=== PATIENT | male | born 1945 | race Caucasian/White ===

== ENCOUNTER → 2020-12-14 | Outpatient (CLI) | payer MEDICARE ==
[2020-12-14 11:13] LABS: Albumin 4.6 g/dL (3.80-4.90); Anion Gap 8.4 mmol/L (4.00-12.00); BUN/Creat Ratio 24.62 Ratio (12.00-20.00); Carbon Dioxide 24.6 mmol/L (21.6-31.8); Globulin 2.3 g/dL (1.6-3.3); Non-African American GFR(CKD) 52.6 (60.0-200.0); Potassium 4.8 mmol/L (3.5-5.5); Total Bilirubin 0.5 mg/dL (0.2-1.2); Total Protein 6.9 g/dL (6.2-8.2)
== END | disposition home or self-care (01) ==
LOC: LABWHC1 07:02
PROVIDERS: ATTEND Thoracic Surgery (Cardiothoracic Vascular Surgery)
DX: I35.1 Nonrheumatic aortic (valve) insufficiency (principal)
CPT/HCPCS: 36415; 80053

== ENCOUNTER → 2021-01-14 | Outpatient (CLI) | payer MEDICARE ==
--- NOTE | 2021-01-14 13:38 | CT ---
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 CONTRAST: CT scan of the chest, abdomen and pelvis is performed with IV Contrast, patient injected with 125 mL of Isovue 370. COMPARISON: None TECHNIQUE: Helical imaging obtained through the chest, abdomen and pelvis during arterial phase denise mabel administration of radiographic contrast intravenously. 3-D reconstructions generated on a [employer] workstation. FINDINGS: See report from [facility] regarding preprocedural planning CHEST: Lower Neck and Thyroid: No significant findings. Aorta: Mild aneurysm ascending aorta 4.1 cm. Mild scattered atherosclerotic calcifications with conve ntional arch vessel branching anatomy. Lungs: Mild biapical pleural-parenchymal scarring. Strandy bibasilar areas of atelectasis and mild de pendent atelectasis. No consolidation or pleural effusion. Central Airway: No significant findings Pleura: No significant findings Pulmonary Arteries: No significant findings Heart and Pericardium: Prominent LAD coronary artery calcifications. Lesser degree of RCA and circumf reno coronary artery calcifications. Lymph Nodes: No significant findings Mediastinum & Esophagus: No significant findings ABDOMEN/PELVIS: Please note arterial phase of the imaging limits detailed evaluation of the solid abdominal organs. Liver: No significant findings Spleen: No significant findings Kidneys: Tiny 5 mm cortical cyst lateral right kidney. Extra renal pelvis on both sides. Adrenal Glands: No significant findings Pancreas: No significant findings Gallbladder: No significant findings Bowel and Mesentery: Some generalized fold thickening of the gastric fundus and body. Correlate for p ossible underlying chronic gastritis. No dilated small bowel, free fluid, free air. Left sided coloni c diverticulosis, greatest in the sigmoid colon. No pericolonic inflammatory change. Mild scattered s tool. Aorta: Endovascular stent graft repair of abdominal aortic aneurysm. The stent proximal landing zone a at or just above the level of the renal arteries. [place] sac measures 4.8 cm. There may be a moder ate focal stenosis at the left common iliac artery bifurcation, axial image 91. The right common julisa c artery landing zone is mildly ectatic at 1.8 cm. There is prominent vessel tortuosity at the level of both common iliac artery bifurcations and proximal external iliac arteries. Lymph Nodes: No significant findings Urinary Bladder: No significant findings Pelvic Organs: Prostatomegaly of 5.4 cm wide. Multiple pelvic phlebolith. Small left inguinal hernia. Small bilateral hydroceles. Other: No significant findings Other Lines/Tubes/Devices/Hardware: None IMPRESSION: 1. Abdominal aortic endovascular stent graft repair. The havas[place]ai sac measures 4.8 cm. Correlate with a ny outside priors to determine stability. 2. Prominent vessel tortuosity at the bilateral common iliac artery bifurcations and proximal externa l iliac arteries. 3. Possible moderate focal stenosis at the left common iliac artery bifurcation. 4. Mildly ectatic right common iliac artery stent landing zone at 1.8 cm. 5. Left-sided colonic diverticulosis without acute diverticulitis. 6. Focal thickening within the gastric fundus and body, possible chronic gastritis. Clinically correl ate.
== END | disposition home or self-care (01) ==
LOC: RADCTMAIN 09:22
PROVIDERS: ATTEND Internal Medicine Interventional Cardiology
DX: I35.0 Nonrheumatic aortic (valve) stenosis (principal); K57.30 Diverticulosis of large intestine without perforation or abscess without bleeding
CPT/HCPCS: 82565; 84520; 71275; 36415; 74174; Q9967

== ENCOUNTER 2021-06-01 10:19 | Emergency (ER) | payer MEDICARE ==
[2021-06-01 10:54] VITALS: BP 96/56; PULSE 95; RESP 18; TEMP 98.4
[2021-06-01] MEDS ORDERED: OXYMETAZOLINE 0.05% NASL SPRAY 1 SPRAY BOTTLE NASAL STA (11:29)
--- NOTE | 2021-06-01 13:31 | ED ---
ENT HPI - General Chief complaint: ENT Stated complaint: epistaxis Time Seen by Provider: 06/01/21 11:25 Source: patient, RN notes reviewed Mode of arrival: ambulatory Limitations: no limitations - History of Present Illness Initial comments: Patient is a 75-year-old male that presents emergency department with a right- sided nosebleed. Patient notes that this happened around 2:00 in the morning after he got the shower. He notes that for the past several days she's been having a dry nose asthma and ALLERGIES. He notes his been blowing his nose rep eatedly throughout the day. He notes he does not have a humidifier at home or using nasal spray to keep his nasal mucosa moist. Patient notes a little takes a baby aspirin. Patient denied any rashes complaint. He was otherwise well- appearing.he denied any chest pain shortness of breath headache nausea vomiting diarrhea constipation fever fatigue chills. - Related Data Previous Rx's Medication Instructions Recorded Fluticasone Nasal [place] [Flonase 2 spr EA NOSTRIL DAILY #16 gm 06/01/21 Nasal [place]] Allergies Allergy/AdvReac Type Severity Reaction Status Date / Time No Known Allergies Allergy Verified 06/01/21 13:27 Review of Systems ROS Statement: Those systems with pertinent positive or pertinent negative responses have been documented in the HPI. ROS Other: All systems not noted in ROS Statement are negative. Past Medical History History of Any Multi-Drug Resistant Organisms: None Reported Past Psychological History: No Psychological Hx Reported Smoking Status: Never smoker Past Alcohol Use History: None Reported Past Drug Use History: None Reported General Exam Limitations: no limitations General appearance: alert, in no apparent distress Head exam: Present: atraumatic, normocephalic, normal inspection Eye exam: Present: normal appearance, PERRL, EOMI. Absent: scleral icterus, conjunctival injection, periorbital swelling ENT exam: Present: normal exam, mucous membranes moist Neck exam: Present: normal inspection Respiratory exam: Present: normal lung sounds bilaterally. Absent: respiratory distress, wheezes, rales, rhonchi, stridor Cardiovascular Exam: Present: regular rate, normal rhythm, normal heart sounds. Absent: systolic murmur, diastolic murmur, rubs, gallop, clicks GI/Abdominal exam: Present: soft, normal bowel sounds. Absent: distended, tenderness, guarding, rebound, rigid Extremities exam: Present: normal inspection, full ROM, normal capillary refill. Absent: tenderness, pedal edema, joint swelling, calf tenderness Neurological exam: Present: alert, oriented X3 Psychiatric exam: Present: normal affect, normal mood Skin exam: Present: warm, dry, intact, normal color. Absent: rash Course Vital Signs 06/01/21 10:46 Temperature 98.4 F Pulse Rate 95 Respiratory 18 Rate Blood Pressure 96/56 O2 Sat by Pulse 100 Oximetry Medical Decision Making - Medical Decision Making 75-year-old male with nosebleed. Right-sided nosebleed clotted well prior to arrival. Patient pulled out packing clock and with a. Oxymetazoline one spray each nostril was done was clamp Was placed. Upon evaluation nose bleeding. 1 more spray of oxymetazoline was administered. Case discussed with Dr. Cloud, patient discharge home. Disposition Clinical Impression: Epistaxis Disposition: HOME SELF-CARE Condition: Stable Instructions (If sedation given, give patient instructions): Nosebleed (ED) Additional Instructions: Please return to the Emergency Department if symptoms worsen or any other concerns. Follow-up primary care 1-2 days. Absolutely do not blow your24 hours. Use Flonase as prescribed. Is patient prescribed a controlled substance at d/c from ED?: No Referrals: Jose Guadalupe Cruz MD [Primary Care Provider] - 1-2 days Time of Disposition: 13:30
== END 2021-06-01 14:08 | disposition home or self-care (01) ==
LOC: EC 10:19
DX: R04.0 Epistaxis (principal)
CPT/HCPCS: 30901; 99283

== ENCOUNTER 2021-06-14 09:50 | Emergency (ER) | payer MEDICARE ==
[2021-06-14 12:11] VITALS: TEMP 97.6
--- NOTE | 2021-06-14 12:38 | ED ---
General Adult HPI - General Chief complaint: ENT Stated complaint: epistaxis Time Seen by Provider: 06/14/21 12:18 Source: patient Mode of arrival: ambulatory Limitations: no limitations - History of Present Illness Initial comments: Dictation was produced using [employer] dictation software. please excuse any grammatical, word or spelling errors. Chief Complaint: 75-year-old male presents with epistaxis, request for coronavirus test and blood work History of Present Illness: 75-year-old male presents to the emergency department for nosebleed. He was seen here a week ago for epistaxis. He was sent home with Afrin spray. Patient states he's had on-and-off bleeding since then. He followed up with his primary care doctor in was redirected to the emergency room to get nasal packing. Patient also requests covered test and blood work. Patient states he is having bleeding from the right naris. The ROS documented in this emergency department record has been reviewed and confirmed by me. Those systems with pertinent positive or negative responses have been documented in the HPI. All other systems are other negative and/or noncontributory. PHYSICAL EXAM: General Impression: Alert and oriented x3, not in acute distress HEENT: Normocephalic atraumatic, extra-ocular movements intact, pupils equal and reactive to light bilaterally, mucous membranes moist. Naris: There is blood clots and losing, from the right naris. There is some residual blood in the posterior oropharynx Cardiovascular: Heart regular rate and rhythm Chest: Able to complete full sentences, no retractions, no tachypnea Motor: no focal deficits noted Neurological: CN II-XII grossly intact, no focal motor or sensory deficits noted Skin: Intact with no visualized rashes Psych: Normal affect and mood ED course: 75-year-old male presents with epistaxis, request for covered test. Arrival are within acceptable limits. Rhino was placed in the right naris. Anterior and posterior balloon were inflated. Laboratory evaluation obtained. He will 9.3. Old hemoglobins for comparison. Coag panel is negative. Metabolic panel is within acceptable limits. Rotavirus negative. Case discussed with Dr. Diego who is willing to see patient in the office for outpatient management and epistaxis. Patient given antibiotics to be taken while packing is in place. - Related Data Home Medications Medication Instructions Recorded Confirmed Albuterol Sulfate [Proair Hfa] 1 - 2 puff INHALATION RT-Q6H PRN 06/01/21 06/14/21 Ascorbic Acid [Vitamin C] 1,000 mg PO DAILY 06/01/21 06/14/21 Aspirin EC [Ecotrin Low Dose] 81 mg PO DAILY 06/01/21 06/14/21 Cetirizine HCl [Zyrtec] 10 mg PO DAILY 06/01/21 06/14/21 Ezetimibe [Zetia] 10 mg PO DAILY@1600 06/01/21 06/14/21 Fenofibrate 160 mg PO DAILY 06/01/21 06/14/21 Isosorbide Mononitrate ER [Imdur] 30 mg PO DAILY@0100 06/01/21 06/14/21 Lansoprazole [Prevacid] 30 mg PO DAILY@0200 06/01/21 06/14/21 Metoprolol Succinate [Toprol XL] 100 mg PO DAILY@0500 06/01/21 06/14/21 Montelukast [Singulair] 10 mg PO DAILY@0700 06/01/21 06/14/21 Multivitamins, Thera [Multivitamin 1 tab PO DAILY 06/01/21 06/14/21 (formulary)] Rosuvastatin Calcium [Crestor] 40 mg PO HS@199906/01/21 06/14/21 lisinopriL [Zestril] 20 mg PO DAILY@0600 06/01/21 06/14/21 Previous Rx's Medication Instructions Recorded Fluticasone Nasal [place] [Flonase 2 spr EA NOSTRIL DAILY #16 gm 06/01/21 Nasal [place]] Amoxic-Pot Clav 875-125Mg 1 tab PO BID 10 Days #20 tab 06/14/21 [Augmentin 875-125] Allergies Allergy/AdvReac Type Severity Reaction Status Date / Time No Known Allergies Allergy Verified 06/14/21 13:17 Review of Systems ROS Statement: Those systems with pertinent positive or pertinent negative responses have been documented in the HPI. ROS Other: All systems not noted in ROS Statement are negative. Past Medical History Past Medical History: Myocardial Infarction ([place]) History of Any Multi-Drug Resistant Organisms: None Reported Additional Past Surgical History / Comment(s): angioplasty, aortic stent Past Psychological History: No Psychological Hx Reported Smoking Status: Never smoker Past Alcohol Use History: None Reported Past Drug Use History: None Reported General Exam Limitations: no limitations Course Vital Signs 06/14/21 12:04 Temperature 97.6 F Pulse Rate 92 Respiratory 18 Rate Blood Pressure 104/60 O2 Sat by Pulse 100 Oximetry Medical Decision Making - Lab Data Result diagrams: 06/14/21 12:49 06/14/21 12:49 Lab Results 06/14/21 06/14/21 06/14/21 Range/Units 12:44 12:49 12:49 WBC 13.7 H (3.8-10.6) k/uL RBC 3.13 L (4.30-5.90) m/uL Hgb 9.3 L (13.0-17.5) gm/dL Hct 29.3 L (39.0-53.0) % MCV 93.6 (80.0-100.0) fL MCH 29.8 (25.0-35.0) pg MCHC 31.9 (31.0-37.0) g/dL RDW 13.0 (11.5-15.5) % Plt Count 397 (150-450) k/uL MPV 7.6 Neutrophils % 88 % Lymphocytes % 6 % Monocytes % 4 % Eosinophils % 0 % Basophils % 0 % Neutrophils # 12.0 H (1.3-7.7) k/uL Lymphocytes # 0.9 L (1.0-4.8) k/uL Monocytes # 0.5 (0-1.0) k/uL Eosinophils # 0.0 (0-0.7) k/uL Basophils # 0.0 (0-0.2) k/uL PT 14.2 H (9.0-12.0) sec INR 1.4 H (<1.2) APTT 24.4 (22.0-30.0) sec Sodium (137-145) mmol/L Potassium (3.5-5.1) mmol/L Chloride (98-107) mmol/L Carbon Dioxide (22-30) mmol/L Anion Gap mmol/L BUN (9-20) mg/dL Creatinine (0.66-1.25) mg/dL Est GFR (CKD-EPI)AfAm (>60 ml/min/1.73 sqM) Est GFR (CKD-EPI)NonAf (>60 ml/min/1.73 sqM) Glucose (74-99) mg/dL Calcium (8.4-10.2) mg/dL Coronavirus (PCR) Not Detected (Not Detectd) 06/14/21 Range/Units 12:49 WBC (3.8-10.6) k/uL RBC (4.30-5.90) m/uL Hgb (13.0-17.5) gm/dL Hct (39.0-53.0) % MCV (80.0-100.0) fL MCH (25.0-35.0) pg MCHC (31.0-37.0) g/dL RDW (11.5-15.5) % Plt Count (150-450) k/uL MPV Neutrophils % % Lymphocytes % % Monocytes % % Eosinophils % % Basophils % % Neutrophils # (1.3-7.7) k/uL Lymphocytes # (1.0-4.8) k/uL Monocytes # (0-1.0) k/uL Eosinophils # (0-0.7) k/uL Basophils # (0-0.2) k/uL PT (9.0-12.0) sec INR (<1.2) APTT (22.0-30.0) sec Sodium 133 L (137-145) mmol/L Potassium 5.4 H (3.5-5.1) mmol/L Chloride 102 (98-107) mmol/L Carbon Dioxide 18 L (22-30) mmol/L Anion Gap 13 mmol/L BUN 64 H (9-20) mg/dL Creatinine 1.37 H (0.66-1.25) mg/dL Est GFR (CKD-EPI)AfAm 57 (>60 ml/min/1.73 sqM) Est GFR (CKD-EPI)NonAf 49 (>60 ml/min/1.73 sqM) Glucose 121 H (74-99) mg/dL Calcium 10.2 (8.4-10.2) mg/dL Coronavirus (PCR) (Not Detectd) Disposition Clinical Impression: Epistaxis Disposition: HOME SELF-CARE Condition: Fair Instructions (If sedation given, give patient instructions): Nosebleed (ED) Prescriptions: Amoxic-Pot Clav 875-125Mg [Augmentin 875-125] 1 tab PO BID 10 Days #20 tab Is patient prescribed a controlled substance at d/c from ED?: No Referrals: Bo Diego MD [STAFF PHYSICIAN] - 1-2 days
[2021-06-14 12:59] LABS: Basophils % (A) 0 %; Eosinophils % (A) 0 %; HCT 29.3 % (39.0-53.0); HGB 9.3 gm/dL (13.0-17.5); Lymphocytes # (A) 0.9 k/uL (1.0-4.8); Lymphocytes % (A) 6 %; MCH 29.8 pg (25.0-35.0); MCHC 31.9 g/dL (31.0-37.0); MCV 93.6 fL (80.0-100.0); Mean Platelet Volume 7.6; Monocytes # (A) 0.5 k/uL (0-1.0); Monocytes % (A) 4 %; Neutrophils % (A) 88 %; Platelet Count 397 k/uL (150-450); RBC 3.13 m/uL (4.30-5.90); WBC 13.7 k/uL (3.8-10.6)
[2021-06-14 13:08] LABS: Calcium 10.2 mg/dL (8.4-10.2); Potassium 5.4 mmol/L (3.5-5.1)
[2021-06-14 13:09] LABS: INR 1.4 (<1.2); Partial Thromboplastin Time 24.4 sec (22.0-30.0); Prothrombin Time 14.2 sec (9.0-12.0)
[2021-06-14 13:34] VITALS: BP 122/74; PULSE 77; RESP 16
== END 2021-06-14 13:34 | disposition home or self-care (01) ==
LOC: EC 09:50
DX: R04.0 Epistaxis (principal); I25.2 Old myocardial infarction; Z79.82 Long term (current) use of aspirin; Z20.822 Contact with and (suspected) exposure to COVID-19
CPT/HCPCS: 36415; 80048; 85025; 85610; 85730; 86850; 86900; 86901; 87635; 99283

== ENCOUNTER → 2021-08-04 | Outpatient (CLI) | payer MEDICARE ==
--- NOTE | 2021-08-04 08:03 | US ---
EXAMINATION TYPE: US kidneys/renal and bladder DATE OF EXAM: 08/04/2021 COMPARISON: CT 5 days ago. CLINICAL HISTORY: M54.50 Back Pain N18.31 Kidney Disease. CKD, Left renal stones seen on prior CT EXAM MEASUREMENTS: Right Kidney: 11.0 x 6.3 x 5.3 cm Left Kidney: 10.2 x 5.5 x 5.4 cm Right Kidney: No hydronephrosis or masses seen Left Kidney: No hydronephrosis, stones not seen at this time due to small in size Bladder: Not fully distended Bilateral Jets seen: Yes There is no evidence for hydronephrosis at this point in time. Some increased cortical echogenicity b ilaterally isodense to adjacent liver and spleen is noted. The 2-3 punctate nonobstructing left mayda l calculi measuring under 3 mm in size on recent CT are not clearly seen on today's ultrasound. No m asses are identified on images saved. The urinary bladder is poorly distended and is thus suboptimal ly evaluated. Bilateral ureteral jets are however seen. IMPRESSION: No hydronephrosis noted bilaterally.
== END | disposition home or self-care (01) ==
LOC: RADUSWWP 07:11
PROVIDERS: ATTEND Family Medicine
DX: M54.50 Low back pain, unspecified (principal); N20.0 Calculus of kidney; N18.31 Chronic kidney disease, stage 3a
CPT/HCPCS: 76770

== ENCOUNTER → 2021-09-02 | Outpatient (CLI) | payer MEDICARE ==
[2021-09-02 15:06] LABS: HCT 32.1 % (39.6-50.0); HGB 9.6 g/dL (13.0-17.0); MCH 29.9 pg (27.0-32.0); MCHC 29.9 g/dL (32.0-37.0); Mean Platelet Volume 11.5 fL (9.5-12.2); NRBC Per 100 WBC 0 /100 WBCS (0.0-0.0); Platelet Count 214 X 10*3/uL (140-440); RBC 3.21 X 10*6/uL (4.40-5.60); RDW 15.2 % (11.5-14.5); WBC 9.22 X 10*3/uL (4.50-10.00)
[2021-09-02 16:13] LABS: Anion Gap 11.8 mmol/L (10.00-18.00); Blood Urea Nitrogen 21.6 mg/dL (9.0-27.0); Carbon Dioxide 22.6 mmol/L (20.0-27.5); Non-African American GFR(CKD) 64.7 (60.0-200.0); Potassium 5.9 mmol/L (3.5-5.5)
== END | disposition home or self-care (01) ==
LOC: LABWHC1 09:19
PROVIDERS: ATTEND Internal Medicine Interventional Cardiology
DX: Z01.812 Encounter for preprocedural laboratory examination (principal); I35.0 Nonrheumatic aortic (valve) stenosis
CPT/HCPCS: 36415; 80051; 82565; 84520; 85027

== ENCOUNTER 2021-09-07 10:24 | Day surgery (SDC) | payer MEDICARE ==
[2021-09-03 14:15] VITALS: BMI 21.4
[~2021-09-07 10:24] MED LIST: ALPRAZolam 0.25 MG TAB PO PRN; ALPRAZolam 0.5 MG TAB PO PRN; ASPIRIN 325 MG TAB PO ONE; ATORVASTATIN 80 MG TAB PO ONE; NITROGLYCERIN SL TABS 0.4 MG TAB SUBLINGUAL PRN; SODIUM CHLORIDE 0.9% 1,000 ML in EMPTY BAG 1 BAG IV SCH
[2021-09-07] MEDS ORDERED: LIDOCAINE 1% INJ 10MG/ML (20 ML MDV) ONE (12:04)
[2021-09-07] MEDS ORDERED: VERAPAMIL 2.5 MG/ML 2 ML AMP ONE (12:05)
[2021-09-07] MEDS ORDERED: HEPARIN SODIUM 1,000 UN/ML (10ML VL) ONE (12:05)
[2021-09-07] MEDS ORDERED: MIDAZOLAM 2 MG/2 ML VIAL IV ONE (12:27)
[2021-09-07] MEDS ORDERED: LIDOCAINE 1% INJ 10MG/ML (20 ML MDV) SQ ONE (12:29)
[2021-09-07] MEDS ORDERED: VERAPAMIL SYRINGE (5 MG/10 ML) INTRAARTER ONE (12:31)
[2021-09-07] MEDS ORDERED: HEPARIN SODIUM 1,000 UN/ML (10ML VL) IV ONE (12:35)
[2021-09-07] MEDS ORDERED: IOPAMIDOL-370 125ML BTL INJ ONE (12:39)
[2021-09-07 12:57] LABS: Basophils # (A) 0.1 k/uL (0-0.2); Basophils % (A) 1 %; Eosinophils # (A) 0.1 k/uL (0-0.7); Eosinophils % (A) 1 %; HCT 30.6 % (39.0-53.0); HGB 9.5 gm/dL (13.0-17.5); Hypochromasia Marked; Lymphocytes # (A) 0.9 k/uL (1.0-4.8); Lymphocytes % (A) 14 %; MCH 30.6 pg (25.0-35.0); MCV 98.6 fL (80.0-100.0); Mean Platelet Volume 8.8; Monocytes # (A) 0.4 k/uL (0-1.0); Monocytes % (A) 7 %; Neutrophils # (A) 4.8 k/uL (1.3-7.7); Neutrophils % (A) 75 %; Platelet Count 183 k/uL (150-450); RBC 3.11 m/uL (4.30-5.90); RDW 15.3 % (11.5-15.5); WBC 6.5 k/uL (3.8-10.6)
[2021-09-07] MEDS ORDERED: SODIUM CHLORIDE 0.9% 1,000 ML IV SCH (13:00)
[2021-09-07 13:08] LABS: INR 1.3 (<1.2); Partial Thromboplastin Time 36.8 sec (22.0-30.0); Prothrombin Time 13.5 sec (9.0-12.0)
[2021-09-07 13:10] LABS: ALT 9 U/L (4-49); AST 29 U/L (17-59); African American GFR (CKD) >90 (>60 ml/min/1.73 sqM); Alkaline Phosphatase 63 U/L (38-126); Anion Gap 10 mmol/L; Blood Urea Nitrogen 21 mg/dL (9-20); Calcium 9.3 mg/dL (8.4-10.2); Carbon Dioxide 19 mmol/L (22-30); Chloride 108 mmol/L (98-107); Glucose 87 mg/dL (74-99); Magnesium 1.1 mg/dL (1.6-2.3); Non-African American GFR(CKD) 88 (>60 ml/min/1.73 sqM); Potassium 4.6 mmol/L (3.5-5.1); Sodium 137 mmol/L (137-145); Total Bilirubin 0.6 mg/dL (0.2-1.3); Total Protein 6.1 g/dL (6.3-8.2)
[2021-09-07 15:21] LABS: Appearance,Urine Clear (Clear); Bilirubin,Urine Negative (Negative); Blood,Urine Negative (Negative); Color,Urine Yellow; Glucose,Urine (UA) Negative (Negative); Ketones,Urine Negative (Negative); Leukocyte Esterase,Urine Negative (Negative); Nitrite,Urine Negative (Negative); PH, Urine 6.5 (5.0-8.0); Protein,Urine Negative (Negative); Specific Gravity,Urine 1.031 (1.001-1.035); Urobilinogen,Urine <2.0 mg/dL (<2.0)
[2021-09-07 16:23] VITALS: TEMP 97
[2021-09-07 17:44] VITALS: PULSE 72; RESP 16
[2021-09-07 17:46] VITALS: BP 87/52
[2021-09-08 02:47] LABS: Chol/HDL Ratio 3.13 Ratio; Hepatitis A Antibody IgM Nonreactive (Nonreactive); Hepatitis B Core IgM Nonreactive (Nonreactive); Hepatitis B Surface Antigen Nonreactive (Nonreactive); Hepatitis C IgG Antibody Nonreactive (Nonreactive); LDL Cholesterol,Calculated 27.2 mg/dL (0.0-131.0)
[2021-09-08 08:12] LABS: Estimated Average Glucose UNC
--- NOTE | 2021-10-22 13:47 | P.PCN ---
Date of Procedure: 09/07/19 Operative Findings: CARDIAC CATHETERIZATION PERFORMING PHYSICIAN: Mark Mai MD, RPVI PROCEDURE PERFORMED: 1. Selective right and left coronary angiogram INDICATION: Severe aortic stenosis COMPLICATION: None APPROACH: Right radial artery LEVEL OF SEDATION: Moderate with a sedation length of 12 minutes PROCEDURE DESCRIPTION: After obtaining an informed consent, the patient was brought to cardiac nitriles lab technician. Local anesthesia was performed using lidocaine subcutaneously. The right radial artery was cannulated using Seldinger technique, the guidewire passed easily, following that we advanced a 5-[place] sheath dilator assembly, the wire and dilator were removed and sheath was flushed. Following that, 2 mg of verapamil along with 5000 unit heparin were given. Selective right and left coronary angiogram using a 6-[place] JR4 and JL 3.5 catheters. Following that we did left heart catheterization using 6-[place] pigtail catheter. The procedure was completed there was no complication. SELECTIVE CORONARY ANGIOGRAM: The right coronary artery: Is chronically occluded in the proximal portion Left main: Has mild disease only. It is a calcified left main The left circumflex: Is a large caliber vessel. The LCx has mild disease involving first obtuse marginal branch. The LCx is extremely calcified. The left anterior descending artery: It is a large caliber vessel. Its calcified as well as. It has mild disease only. Gives rises into a large diagonal branch. CONCLUSION: 1. Chronic total occlusion of the RCA 2. Mild disease involving the left coronary system POSTPROCEDURE MANAGEMENT: Proceed with transcutaneous aortic valve replacement
== END 2021-09-07 17:03 | disposition home or self-care (01) ==
LOC: CATHCVL 10:24
PROVIDERS: ATTEND Internal Medicine Interventional Cardiology
DX: I25.10 Atherosclerotic heart disease of native coronary artery without angina pectoris (principal); I25.84 Coronary atherosclerosis due to calcified coronary lesion; I25.82 Chronic total occlusion of coronary artery; I35.0 Nonrheumatic aortic (valve) stenosis; I10 Essential (primary) hypertension; E78.5 Hyperlipidemia, unspecified; F17.210 Nicotine dependence, cigarettes, uncomplicated
CPT/HCPCS: 93454; 94150; 83880; 80061; 80053; 80074; 84443; 83735; 85025; 85610; 85730; 81003; 83036; C1894; J2250; J2001; J1644; Q9967